=== PATIENT | female | born 2000 | race Two or more races ===

== ENCOUNTER 2019-06-06 13:24 | Emergency (ER) | payer OTHER ==
[~2019-06-06] VITALS: Ht 160 cm; Wt 61.2 kg
--- NOTE | 2019-06-06 13:34 | NUR ---
ED Nurse Note:pt noted to have some dryness at corners of mouth. no sores or bleeding noted. denies soreness to inside of mouth or tongue
[2019-06-06 13:35] VITALS: BP 137/71
--- NOTE | 2019-06-06 13:46 | Emergency Room Report ---
History of Present Illness General Chief Complaint: Skin Rash/Abscess Source: Patient Present Illness HPI 18-year-old female with no significant past medical history here complaining of rash in the corner of her left lower lip that has been intermittently appearing for the past few months. Patient has not seek any medical attention for this purpose before. Patient reports that every time she eats something spicy or acidic triggers the presentation and dryness of the rash in the corner of her lip. Patient reports that she has genital herpes however this does not feel like to be a cold sore. Denies any pain, fever and chills, nausea vomiting. Denies having similar rash in the rest of her body. Patient reports that she used to be a vegan and recently started eating meat and animal products. Denies any new allergens. Is in no distress. Denies intake of new medication. Has not taken medication for this purpose. Allergies: Coded Allergies: No Known Allergies (Unverified , 06/06/19) Patient History Past Medical History: see triage record Past Surgical History: unable to obtain Pertinent Family History: none Last Menstrual Period: 3 weeks Now: No Immunizations: UTD Reviewed Nursing Documentation: PMH: Agreed; PSxH: Agreed Review of Systems All Other Systems: negative except mentioned in HPI Physical Exam Vital Signs Date Time Temp Pulse Resp B/P (MAP) Pulse Ox O2 Delivery O2 Flow Rate FiO2 06/06/19 13:29 98.2 72 18 137/71 (93) 99 Room Air Sp02 EP Interpretation: reviewed, normal General Appearance: normal inspection, well appearing, no apparent distress, alert Head: normocephalic, atraumatic Eyes: bilateral eye normal inspection, bilateral eye PERRL ENT: normal ENT inspection, hearing grossly normal, normal pharynx Neck: normal inspection, full range of motion, supple, thyroid normal Respiratory: normal inspection, chest non-tender, lungs clear, no rhonchi Cardiovascular #1: normal inspection, regular rate, rhythm, no murmur Gastrointestinal: normal inspection, non tender, soft Musculoskeletal: digits/nails normal Neurologic: alert, oriented x3 Psychiatric: normal inspection, judgement/insight normal Skin: other - Eczematous rash noted at the corner of the left lower lip Lymphatic: normal inspection, no adenopathy Medical Decision Making PA Attestation All diagnoses and treatment plans were reviewed and discussed with my supervising physician Dr. Roger Diagnostic Impression: Primary Impression: Facial eczema ER Course 18-year-old female with no significant past medical history here complaining of rash in the corner of her left lower lip that has been intermittently appearing for the past few months. Patient has not seek any medical attention for this purpose before. Patient reports that every time she eats something spicy or acidic triggers the presentation and dryness of the rash in the corner of her lip. Patient reports that she has genital herpes however this does not feel like to be a cold sore. Denies any pain, fever and chills, nausea vomiting. Denies having similar rash in the rest of her body. Patient reports that she used to be a vegan and recently started eating meat and animal products. Denies any new allergens. Is in no distress. Denies intake of new medication. Has not taken medication for this purpose. Ddx considered but are not limited to: Eczema, scabies, lice, Vital signs: are WNL, pt. is afebrile H&PE are most consistent with: Eczema ORDERS: Triamcinolone, nystatin given as patient requests for fungal treatment. ED INTERVENTIONS: None required at this time. DISCHARGE: At this time pt. is stable for d/c to home. Will provide printed patient care instructions, and any necessary prescriptions. Care plan and follow up instructions have been discussed with the patient prior to discharge. Take medication as directed primary care provider for referral to sales and marketing intern Last Vital Signs Date Time Temp Pulse Resp B/P (MAP) Pulse Ox O2 Delivery O2 Flow Rate FiO2 06/06/19 13:35 98.2 72 18 137/71 99 Room Air Disposition: HOME, SELF-CARE Condition: Stable Scripts Nystatin* (NYSTATIN*) 15 Gm Cream..g. 1 APPLIC TOPIC THREE TIMES A DAY, #15 GM Prov: Sofía Evangelista 06/06/19 Triamcinolone Acet (Triamcinolone Acetonide) 15 Gm Cream..g. 2 GM APPLIC TID, #15 GM Prov: Sofía Evangelista 06/06/19 Patient Instructions: Eczema Additional Instructions: Use cream accordingly avoid eating and drinking when using the cream as it contains steroids see a primary care provider for referral to sales and marketing intern if not resolved. Sofía Evangelista Jun 06, 2019 13:46
[2019-06-06] MEDS ORDERED: KENALOG 0.025%15 GM APPLIC (13:48)
[2019-06-06] MEDS ORDERED: NYSTATIN15 GM TOPIC (13:48)
--- NOTE | 2019-06-06 14:07 | NUR ---
ED Nurse Note: Patient is being discharged from medical care. Patient awake, alert, orietned x 4. Regular, unlabored breathing noted. D/C instruction and prescription given. Ambulated out with steady gait.
== END 2019-06-06 14:05 | disposition home or self-care (01) ==
LOC: EMR 14:04
DX: L30.9 Dermatitis, unspecified (principal)
CPT/HCPCS: 99282